=== PATIENT | female | born 1965 | race Caucasian/White ===

== ENCOUNTER 2017-05-16 08:59 | Inpatient (IN) ==
[2017-05-16] MEDS ORDERED: Gabapentin 300 MG CAPSULE PO ONE (09:23)
[2017-05-16] MEDS ORDERED: Acetaminophen IV 1,000 MG/100 ML INFUS..BTL IVPB ONE (09:23)
[2017-05-16] MEDS ORDERED: Famotidine 20 MG/2 ML VIAL IVP ONE (09:23)
[2017-05-16] MEDS ORDERED: Albuterol 2.5 MG/3 ML NEBULIZER IH ONE (09:34)
[2017-05-16] MEDS ORDERED: Lidocaine -MPF 1% 2 ML VIAL ID ONE (09:34)
[2017-05-16] MEDS ORDERED: CeFAZolin Syr 2,000MG/20 ML 2,000 MG/20 ML SYRINGE IVPB ONE (09:34)
[2017-05-16] MEDS ORDERED: Albuterol 2.5 MG/3 ML NEBULIZER ONE (09:39)
[2017-05-16] MEDS ORDERED: Lidocaine -MPF 1% 2 ML VIAL ONE (09:39)
--- NOTE | 2017-05-16 09:41 | Anesthesia Evaluation PreOp ---
Date of Encounter: 05/16/17 Time of Encounter: 09:40 - Past History Planned Operation: PLIF L5-S1 Cardiac History: Denies any Significant Hx Pulmonary History: Former smoker MONOTYPE SETTER History: Denies Any Significant HX Other Medical History: Other (Sjogren's Syndrome, SLE) Anesthesia History: Past Anesthesia (Severe N/V Foot Surgery, Robotic Lap Hysterectomy) : No Alcohol Use: rarely Drug use: none Medications and Allergies Cyclobenzaprine [Flexeril] 5 mg PO BID 07/26/15 [History] Gabapentin [Neurontin] 600 mg PO BID 01/02/17 [History] Meloxicam 15 mg PO DAILY 01/02/17 [History] Oxycodone HCl/Acetaminophen [Percocet 10-325 mg Tablet] 1 each PO Q6HR #28 tablet 01/02/17 [Rx] Rivaroxaban [Xarelto] 10 mg PO DAILY #21 tablet 01/02/17 [Rx] 3 Allergy/AdvReac Type Severity Reaction Status Date / Time sulfamethoxazole AdvReac Hives Verified 04/18/17 14:18 [From Bactrim] trimethoprim [From Bactrim] AdvReac Hives Verified 04/18/17 14:18 - Meds/Allergy Pre-op Review Medications Reviewed: Yes Allergies Reviewed: Yes Beta Blockers on Current Med List: No Anesthesia Results - Labs Laboratory Tests 04/18/17 04/18/17 15:57 15:57 Hgb 13.3 Hct 39.4 Plt Count 251 Sodium 141 Potassium 4.2 BUN 9 Creatinine 0.83 Anesthesia Exam O2 Sat Height 1.55 m Height 1.55 m Weight 87.543 kg Weight 87.543 kg O2 Sat by Pulse Oximetry 94 Vital Signs Temp Pulse Resp BP Pulse Ox 99.1 F 88 18 120/72 94 05/16/17 09:25 05/16/17 09:25 05/16/17 09:25 05/16/17 09:25 05/16/17 09:25 Height: 5'1 Weight: 193 lbs NPO (# of Hours): MN Pain Scale: 0 - HEENT Pupil (Motor): Pupils equal, EOMI Mallampati: II Teeth: Normal Oral Opening: Greater than 3 - MONOTYPE SETTER LOC: Oriented MONOTYPE SETTER Motor: Normal RUE, Normal LUE, Normal RLE, Normal LLE, Normal Face MONOTYPE SETTER Sensory: Deficit: RLE (paresthesia), LLE (paresthesia) - Cardiac Rhythm: Regular Murmur: None JVD: No Carotid Bruit: No - Pulmonary Breath Sounds: bilateral Clear Respiratory Effort: Symmetrical Anesthesia Assess/Plan ASA Score: 2 Modified Jordon Scale for Level of Consciousness: Cooperative, oriented, and tranquil Anesthetic Plan: General Monitoring Plan: Standard Monitors Recovery Plan: PACU (Discussed GA, agrees to proceed)
[2017-05-16] MEDS ORDERED: Ringers Solution, Lactated 1,000 ML IVC SCH ×2 (09:45→13:45)
[2017-05-16] MEDS ORDERED: Lidocaine -MPF 2% 2 ML VIAL ONE (10:14)
[2017-05-16] MEDS ORDERED: *HR* FentaNYL (PF) 100 MCG/2 ML VIAL ONE (10:14)
[2017-05-16] MEDS ORDERED: *HR* Propofol 200 MG/20 ML VIAL IVP ONE (10:14)
[2017-05-16] MEDS ORDERED: *HR* Midazolam HCl 5 MG/5 ML VIAL IVP ONE (10:14)
[2017-05-16] MEDS ORDERED: Ondansetron 4 MG/2 ML VIAL ONE (10:19)
[2017-05-16] MEDS ORDERED: Dexamethasone 4 MG/ML VIAL ONE (10:19)
[2017-05-16] MEDS ORDERED: *HR* Succinylcholine 200 MG/10 ML VIAL IVP ONE (10:19)
[2017-05-16] MEDS ORDERED: *HR* Midazolam HCl 2 MG/2 ML VIAL ONE (10:22)
[2017-05-16] MEDS ORDERED: *HR* Remifentanil 1 MG VIAL IVP ONE (10:22)
--- NOTE | 2017-05-16 10:24 | History & Physical Report ---
Date of Encounter: 05/16/17 Time of Encounter: 10:23 24 Hour HP Update - Instructions Instructions: If the History and Physical is less than 30 days old and was completed prior to A.M. admission and or procedure and has NOT been updated on calendar day of procedure please complete this update prior to performing procedure. - Update Patient reports changes in Medical Condition: No Changes in examination, assessment, or condition: No Changes in Medication: No Preop tests/diagnostics Reviewed: Yes Pre-Op MRSA Screen: Negative Surgery Remains Indicated: Yes Consent for Planned Operative Procedure(s) Verified: Yes - Pre-Operative Checklist Preoperative Checklist Indicated: No Prophylactic Antibiotic Ordered: Yes Home Medications Include Beta Tom: No Beta Tom Taken Today (Day of Surgery): No Beta Tom Taken Yesterday (Day Prior to Surgery): No Is VTE Prophylaxis Indicated?: Yes
[2017-05-16] MEDS ORDERED: *HR* HYDROmorphone 2 MG/ML SYRINGE ONE (10:39)
[2017-05-16] MEDS ORDERED: Scopolamine Patch 1.5 MG PATCH.TD72 TD ONE (10:39)
[2017-05-16] MEDS ORDERED: Ondansetron 4 MG/2 ML VIAL IVP ONE (13:35)
--- NOTE | 2017-05-16 14:03 | Orthopedic Operative Note ---
Date of procedure: 05/16/17 Pre-op diagnosis: Lumbar stenosis, lumbar radiculopathy, retrolisthesis Post-op diagnosis: same Operation/Findings: Posterior lumbar interbody fusion L5-S1: The patient successfully underwent general endotracheal anesthesia. The patient was given antibiotics prior to the start of the procedure. Compression boots and stockings were used for deep vein thrombosis prophylaxis. A Hood catheter was placed. Leads for neuro monitoring were placed on the upper and lower extremities. This included the cranium. The neuro monitoring personnel confirmed there were satisfactory readings prior to the start of the procedure. The patient was turned prone on the Alvino table. The back was prepped and draped in the usual sterile fashion. An incision was was marked and centered over the involved L5 and S1 levels in the mid line. The incision was deepened through the lumbar fascia. Bovie cautery and Redd elevators were used to reflect the paraspinal musculature at the lateral extent of the L5 transverse processes of the involved lumbosacral levels. Anna clamps were placed over the L5 spinous process. An intraoperative lateral fluoroscopy graft was obtained. A conversation was held between the surgeon and radiologist and both confirmed we had the correct operative levels. We then placed pedicle screws in standard fashion with the aid of fluoroscopy and anatomic landmarks. Briefly a starter awl was used. A gearshift was subsequently used to enter the belt dresser hole via a transpedicular route into the vertebral body. The belt dresser hole was tapped with an undersized instrument, and subsequently four 6.5 x 40 mm pedicle screws were placed bilaterally at the indicated L5 and S1 levels. The screws were tested with the aid of the neurologic monitoring staff via pedicle screw stimulation. All reading suggested there was no significant cortical wall breech. The screws were also evaluated fluoro- graphically and appeared to be in satisfactory position. We then turned our attention to the decompression portion of the procedure. We removed the supraspinous and interspinous ligaments and subsequently the insertion of the ligamentum flavum on the undersurface of the proximal L5 lamina was dislodged with a curette. We then removed the ligamentum flavum as well as undercut the L5-S1 facets at this level to decompress the lateral recesses. We also performed a L5 laminectomy. After the decompression, which was over and above that which was required to place the interbody graft, the foramen and traversing roots at this L5-S1 level were found to be free and patent. We also took part of the left medial facet in order to aid in the decompression. We then protected the neural elements including the thecal sac and traversing nerve root on the left with a dural retractor. We made an annulotomy into the L5-S1 disc space and then removed entire disc material using Pituitary instruments. We trialed various size grafts after the endplates were prepared for graft insertion. An 8 x 26 enter body graft fit well within the L5-S1disc space. We obtained some bone from the left posterior superior iliac spine through us a separate incision and combined with this with the bone which we had saved from the laminectomy portion of the procedure. This autograft bone was first placed in the anterior portion of the L5-S1 disc space and additional bone was placed within the interbody graft spacer. We then placed the interbody graft spacer obliquely across the disc space towards the midline while protecting the neural elements with a root retractor. When the graft was found to be in satisfactory position the tractor technician was removed. We then copiously irrigated the wound. We then decorticated the L5 transverse processes as well as the L5-S1 facet joints of the involved levels to aid in the posterolateral fusion. We placed autograft bone in the lateral gutters over these regions. We then placed rods within the screw heads of the involved levels and first locked the distal screws and then subsequently locked the proximal screws. We then closed the wound in layers with 1 Vicryl for the fascia, 2-0 Vicryl. Subcutaneous tissue, and Dermabond was used for skin closure. Sterile dressings were placed over the wound. The patient was turned supine on a hospital bed and extubated. All sponge instruments and needle counts were correct at the end of the procedure. The patient tolerated the procedure well without complications. Anesthesia: GETA Surgeon: Lennox Arreola Jr Estimated blood loss (cc): 125 Condition: stable Disposition: PACU
[2017-05-16] MEDS: *HR* Promethazine 25 MG/ML VIAL IVP PRN ×2 (14:25→14:30)
[2017-05-16] MEDS: *HR* HYDROmorphone (PF) 1 MG/ML SYRINGE IVP PRN ×2 (14:25→14:30)
--- NOTE | 2017-05-16 15:02 | Anesthesia Evaluation Post Op ---
Date of Encounter: 05/16/17 Time of Encounter: 15:01 - Vital Signs Vital Signs: Vital Signs/O2 Sat, Most Current Temp Pulse Resp BP Pulse Ox 98.8 F 107 19 123/75 98 05/16/17 14:45 05/16/17 14:45 05/16/17 14:45 05/16/17 14:45 05/16/17 14:45 - Lungs Lungs: Clear Ascult./Percussion - Airway Airway: Non-obstructed - Cardiovascular Regular Rate - Mental Status Mental Status: Alert & Oriented, Answers Appropriately - Pain Pain Scale: 7 (has chronic pain) Pain Scale used: JohnsonJuan J (Faces) - Nausea Vomiting Nausea Vomiting: Responds to treatment with IV Meds - Hydration Hydration: Ice chips, Hood catheter - Discharge PostOp Status: Transfer Patient to floor
[2017-05-16] MEDS ORDERED: Naloxone 0.4 MG/ML INJ IVP PRN (15:18)
[2017-05-16] MEDS ORDERED: *HR* OxyCODONE Immed Rel 5 MG TABLET PO SCH (16:00)
[2017-05-16] MEDS: Ringers Solution, Lactated 1,000 ML IVC SCH (16:36)
[2017-05-16] MEDS: CeFAZolin Premix DUPLEX 2,000 MG/50 ML BAG IVPB SCH (19:20)
[2017-05-16] MEDS: *HR* OxyCODONE Immed Rel 5 MG TABLET PO PRN (20:15)
[2017-05-16] MEDS: *HR* Morphine 2 MG/ML SYRINGE IVP PRN (23:24)
[2017-05-17] MEDS: *HR* OxyCODONE Immed Rel 5 MG TABLET PO PRN ×5 (00:21→20:21)
[2017-05-17] MEDS: CeFAZolin Premix DUPLEX 2,000 MG/50 ML BAG IVPB SCH (03:54)
[2017-05-17] MEDS: Ringers Solution, Lactated 1,000 ML IVC SCH (04:25)
[2017-05-17] MEDS: *HR* Morphine 2 MG/ML SYRINGE IVP PRN (05:29)
[2017-05-17] MEDS: Ondansetron 4 MG/2 ML VIAL IVP PRN ×2 (05:29→17:02)
[2017-05-17] MEDS: FLUoxetine 20 MG CAPSULE PO SCH ×2 (07:11)
[2017-05-17] MEDS: Acetaminophen 325 MG TABLET PO PRN ×2 (07:11→17:24)
[2017-05-17] MEDS: Folic Acid 1 MG TABLET PO SCH (07:12)
[2017-05-17] MEDS: diazePAM 10 MG TABLET PO PRN (12:11)
--- NOTE | 2017-05-17 13:28 | Spine Progress Note ---
Date of Encounter: 05/17/17 Time of Encounter: 13:27 Subjective Principal diagnosis: Status post lumbar fusion Interval history: The patient implanted back pain and left lower extremity radicular symptoms and numbness.. Afebrile vital signs are stable. Dressing is clean dry and intact. Neurovascularly intact with regard to bilateral lower extremities. Fires all upper and lower extremity motor groups. . Assessment :stable. Plan mobilize , continue analgesics, discharge planning. Have added Valium 10 mg by mouth 3 times a day when necessary as muscle relaxant. Objective Vital signs: Vital Signs Temp Pulse Resp BP Pulse Ox 05/17/17 11:35 99.7 F H 90 16 122/73 97 05/17/17 07:19 100.0 F H 95 15 105/68 94 05/17/17 04:38 99.0 F 83 18 143/92 94 05/16/17 23:17 99.3 F 93 17 121/77 95 05/16/17 19:30 98.7 F 88 16 111/71 93 05/16/17 17:41 99 F 99 16 119/79 99 05/16/17 16:58 98.2 F 93 13 120/76 95 05/16/17 15:50 98.2 F 106 14 112/77 95 05/16/17 15:26 95 05/16/17 15:05 99.1 F 102 20 126/83 93 05/16/17 14:55 108 16 133/82 96 05/16/17 14:45 98.8 F 107 19 123/75 98 05/16/17 14:35 112 14 122/69 100 05/16/17 14:25 118 20 132/90 93 05/16/17 14:15 98.2 F 120 20 158/94 93 Intake and Output 05/16/17 05/17/17 05/17/17 23:59 07:59 15:59 Intake Total 1570 / 1570 1450 / 1450 Output Total 1999 / 1999 1400 / 1400 Balance -430 / -430 50 / 50 Intake: IV Fluids 1170 / 1170 1050 / 1050 Lactated Ringers 1,000 ML @ 100 1000 / 1000 1000 / 1000 mls/hr IVC .Q10H [facility] Rx#: [id number] Ofirmev 1,000 mg/100 ml 1,000 100 / 100 mg In 100 ml @ 400 mls/hr IVPB ONCE ONE Rx#:[id number] Ancef Premix DUPLEX 2,000 mg In 50 / 50 50 / 50 50 ml @ 100 mls/hr IVPB Q8H [facility] Rx#:[id number] Ancef Syringe 2,000 MG/20 ML 2, 20 / 20 000 mg In 20 ml @ 200 mls/hr IVPB PREOP ONE Rx#:[id number] Oral 400 / 400 400 / 400 Output: Catheter 1999 1400 / 1400 Consult Discharge Plan - Plan Referrals: Elaina Bravo MD [Primary Care Provider] -
[2017-05-17 22:21] LABS: Bilirubin,Urine Negative (Negative); Blood,Urine Small (Negative); Clarity,Urine Cloudy (Clear); Color,Urine Yellow (Yellow); Glucose,Urine (UA) Normal (Normal); Ketones,Urine Negative (Negative); Leukocyte Esterase,Urine Large (Negative); Nitrite,Urine Negative (Negative); PH,Urine 6.5 pH Units (5.0-8.0); Protein,Urine Negative (Neg-Trace); Specific Gravity,Urine 1.005 (1.010-1.025); Urobilinogen,Urine Normal (Normal)
[2017-05-17 22:34] LABS: Squamous Epithelial Cell,Urine Moderate per lpf (None-Few); WBC,Urine 50-100 per hpf (0-3)
[2017-05-17 22:35] LABS: Bacteria,Urine Moderate per hpf (None-Few); Hyaline Casts,Urine None Seen per lpf (None-Few)
[2017-05-18] MEDS: *HR* OxyCODONE Immed Rel 5 MG TABLET PO PRN ×4 (06:03→20:20)
[2017-05-18] MEDS: Folic Acid 1 MG TABLET PO SCH (08:09)
[2017-05-18] MEDS: FLUoxetine 20 MG CAPSULE PO SCH ×2 (08:10→08:11)
--- NOTE | 2017-05-18 12:04 | Spine Progress Note ---
Date of Encounter: 05/18/17 Time of Encounter: 12:03 Subjective Principal diagnosis: Status post lumbar fusion Interval history: The patient complains mostly of back pain. Afebrile vital signs are stable. Incision is clean dry and intact. Neurovascularly intact with regard to bilateral lower extremities. Fires all upper and lower extremity motor groups. . Assessment :stable. Plan mobilize ,continue analgesics, discharge planning. Have added Valium 10 mg by mouth 3 times a day when necessary as muscle relaxant. Objective Vital signs: Vital Signs Temp Pulse Resp BP Pulse Ox 05/18/17 08:16 92 05/18/17 07:46 100.9 F H 94 16 117/79 92 05/18/17 03:35 99.8 F H 95 18 93/63 90 05/18/17 00:55 100.1 F H 64 17 97/66 94 05/17/17 22:04 99.5 F 98 19 93/54 93 05/17/17 18:50 102.3 F H 102 17 119/64 94 05/17/17 17:18 102.6 F H 108 16 132/84 92 Intake and Output 05/17/17 05/18/17 05/18/17 23:59 07:59 15:59 Intake Total 500 / 500 600 / 600 Balance 500 / 500 600 / 600 Intake: Oral 500 / 500 600 / 600 Other: # Voids 1 2 - Labs Labs: Abnormal lab results Urine Clarity Cloudy (Clear) A 05/17/17 22:10 Ur Specific [place] 1.005 (1.010-1.025) L 05/17/17 22:10 Urine Blood Small (Negative) H 05/17/17 22:10 Ur Leukocyte Esterase Large (Negative) H 05/17/17 22:10 Urine Microscopic RBC 3-5 per hpf (0-3) H 05/17/17 22:10 Urine Microscopic WBC 50-100 per hpf (0-3) H 05/17/17 22:10 Ur Squamous Epith Cells Moderate per lpf (None-Few) H 05/17/17 22:10 Urine Bacteria Moderate per hpf (None-Few) H 05/17/17 22:10 Ur Culture Indicated? YES (NO) A 05/17/17 22:10 Consult Discharge Plan - Plan Referrals: Latasha Oneil, PAC [Physician Sales Coordinator] - 05/29/17 1:15 pm Sessions,Main Escobedo DPM [Partnered Physician] - 05/30/17 10:15 am Lennox Arreola Jr, MD [Partnered Physician] - 08/16/17 11:45 am Elaina Bravo MD [Primary Care Provider] -
--- NOTE | 2017-05-18 12:13 | Discharge Summary ---
Date of Encounter: 05/18/17 Time of Encounter: 12:11 - Discharge Diagnosis (1) Lumbar stenosis without neurogenic claudication Priority: Primary Status: Chronic (2) Lumbar radiculopathy Priority: Secondary Status: Chronic (3) Retrolisthesis of vertebrae Priority: Secondary Status: Chronic - Discharge Medications Prescriptions: OxyCODONE Immed Rel [Roxicodone 5 MG] 10 mg PO Q6HR PRN #30 tablet PRN Reason: Mild To Moderate Pain diazePAM [Valium] 10 mg PO TID PRN #30 tablet PRN Reason: Spasms Home Medications: Cyclobenzaprine [Flexeril] 5 mg PO BID PRN 07/26/15 [History] Gabapentin [Neurontin] 600 mg PO BID 01/02/17 [History] Meloxicam 15 mg PO DAILY 01/02/17 [History] FLUoxetine HCl [Fluoxetine HCl] 40 mg PO DAILY 05/16/17 [History] FLUoxetine HCl [Prozac] 20 mg PO DAILY 05/16/17 [History] Folic Acid 1 mg PO DAILY 05/16/17 [History] Gabapentin [Neurontin] 1,200 mg PO HS 05/16/17 [History] Hydroxychloroquine [Plaquenuil] 200 mg PO BID 05/16/17 [History] Methotrexate [Otrexup] 10 mg PO MO 05/16/17 [History] OxyCODONE Immed Rel [Roxicodone 5 MG] 10 mg PO Q6HR PRN #30 tablet 05/18/17 [Rx] diazePAM [Valium] 10 mg PO TID PRN #30 tablet 05/18/17 [Rx] Allergies/Adverse Reactions: 3 Allergy/AdvReac Type Severity Reaction Status Date / Time sulfamethoxazole AdvReac Hives Verified 05/16/17 09:58 [From Bactrim] trimethoprim [From Bactrim] AdvReac Hives Verified 05/16/17 09:58 Labs on day of discharge: Labs from last 24 hours 05/17/17 22:10 Urine Color Yellow Urine Clarity Cloudy A Urine pH 6.5 Ur Specific [place] 1.005 L Urine Protein Negative Urine Glucose (UA) Normal Urine Ketones Negative Urine Blood Small H Urine Nitrite Negative Urine Bilirubin Negative Urine Urobilinogen Normal Ur Leukocyte Esterase Large H Urine Microscopic RBC 3-5 H Urine Microscopic WBC 50-100 H Ur Squamous Epith Cells Moderate H Urine Bacteria Moderate H Hyaline Casts None Seen Ur Culture Indicated? YES A - Impressions ITS Impressions Lumbar Spine X-Ray 05/16/17 11:37 IMPRESSION: Postsurgical changes of posterior fusion from L5-S1 without evidence of hardware complication on single view. D/ / Osmel Nixon MD / Osmel Nixon MD Interpreting Provider: Osmel Nixon MD Lumbar Spine X-Ray 05/18/17 14:03 IMPRESSION: Mild dextroscoliosis. Lumbar spine fusion at L4-5. No unexpected finding. D/ / 05/18/2017 11:59:00 Felicia Hawkins MD / domingo Interpreting Provider: Felicia Hawkins MD Date of admission: 05/16/17 15:22 Primary care physician: Elaina Eduardo Consults: 05/16/17 15:18 Consult to Occupational Therapy [CONS] Routine Comment: Evaluate, develop and implement POC Reason for Consult: Postoperative rehabilitation Consult to Physical Therapy [CONS] Routine Comment: Evaluate, develop and implement POC Reason for Consult: post Operative rehabilitation Consult to Spine Navigator [CONS] [CONS] Routine - Patient Status Disposition: Home Health Service Condition: Good Functional capacity at discharge: uses cane/walker Overall status at discharge: patient is progressing back to baseline - Discharge Instructions Follow Up With: Latasha Oneil PAC [Physician Typesetter Perforator Operator] - 05/29/17 1:15 pm Sessions,Main Escobedo DPM [Partnered Physician] - 05/30/17 10:15 am Lennox Arreola Jr, MD [Partnered Physician] - 08/16/17 11:45 am Elaina Bravo MD [Primary Care Provider] - - Diet and Activity Activity: as per physical therapy Diet: advance to your usual diet - Hospital Course Hospital course: Ms. Gan is a 52 year old female The patient had an uneventful postoperative course. Progressed from intravenous analgesic needs to oral analgesic needs only. Remained neurovascularly intact and mobilized satisfactorily. All intraoperative and/or postoperative radiographic studies were satisfactory. Patient is discharged with plan for rehabilitation and follow-up in 2 weeks post discharge on analgesic medication and patient's home medications. - Time Spent with Patient Total time spent providing and/or coordinating discharge services: - VTE Documentation of Mechanical Device: Graduated compression elastic hosiery
[2017-05-18] MEDS: Acetaminophen 325 MG TABLET PO PRN (15:53)
[2017-05-18] MEDS: *HR* Morphine 2 MG/ML SYRINGE IVP PRN (17:27)
[2017-05-18 18:24] LABS: Hematocrit 30.1 % (35.3-44.9); Hemoglobin 9.8 g/dL (11.5-15.4); Immature Granulocytes % 0.4 % (0-4); Lymphocytes # 0.9 K/mcL (0.6-4.6); Lymphocytes % 10.9 %; Mean Corpuscular HGB Conc 32.6 g/dL (31.6-35.5); Mean Corpuscular Hemoglobin 30.9 pg (28.0-33.3); Mean Platelet Volume 8.6 fL (9.4-12.4); Monocytes # 0.9 K/mcL (0.0-1.3); Monocytes % 11.1 %; Neutrophils # 6.1 K/mcL (1.6-8.9); Platelet Count 154 K/mcL (140-400); Red Blood Count 3.17 M/mcL (3.82-4.97); Segmented Neutrophils % 77.6 %
[2017-05-18 18:35] LABS: BUN/Creatinine Ratio 9 (6-26); Blood Urea Nitrogen 7 mg/dL (7-20); Calcium 8.5 mg/dL (8.6-10.8); Carbon Dioxide 24 mEq/L (19-29); Chloride 101 mEq/L (98-109); Glucose 117 mg/dL (70-99); Osmolality,Calculated 281 (280-300); Potassium 3.1 mEq/L (3.5-4.5); Sodium 136 mEq/L (136-145); eGFR For African Americans > 60 (> 60); eGFR For Non-African Americans > 60 (> 60)
[2017-05-19] MEDS: *HR* OxyCODONE Immed Rel 5 MG TABLET PO PRN ×2 (07:30→17:33)
[2017-05-19] MEDS: FLUoxetine 20 MG CAPSULE PO SCH ×2 (07:52)
[2017-05-19] MEDS: Folic Acid 1 MG TABLET PO SCH (07:53)
[2017-05-19] MEDS ORDERED: Ondansetron ODT 4 MG TAB.RAPDIS SL PRN (09:29)
[2017-05-19] MEDS: diazePAM 10 MG TABLET PO PRN (11:13)
[2017-05-19] MEDS: Acetaminophen 325 MG TABLET PO PRN (12:43)
[2017-05-20] MEDS: *HR* OxyCODONE Immed Rel 5 MG TABLET PO PRN ×2 (02:06→09:00)
[2017-05-20 07:17] VITALS: BP 114/55
[2017-05-20] MEDS: FLUoxetine 20 MG CAPSULE PO SCH ×2 (09:01)
[2017-05-20] MEDS: Folic Acid 1 MG TABLET PO SCH (09:01)
--- NOTE | 2017-05-20 09:06 | Orthopedics Progress Note ---
Date of Encounter: 05/20/17 Time of Encounter: 09:05 Subjective Principal diagnosis: Status post lumbar fusion Interval history: S: Doing well this AM Pain in good control O: Afeb, VSS Dressing is clean, dry, and intact Motors bilateral lower extremities A: Post L4 PLIF P: Continue postoperative protocol per Dr. Arreola D/C today Objective Vital signs: Vital Signs Temp Pulse Resp BP Pulse Ox 05/20/17 07:10 99.5 F 76 15 114/55 93 05/20/17 05:14 85 109/74 05/20/17 02:05 86 15 114/75 05/19/17 19:39 98.6 F 93 15 101/59 98 05/19/17 17:30 99.7 F H 95 15 104/63 05/19/17 12:37 97.9 F 90 16 100/68 96 Intake and Output 05/19/17 05/20/17 05/20/17 23:59 07:59 15:59 Intake Total 50 / 50 50 / 50 Balance 50 / 50 50 / 50 Intake: Oral 50 / 50 50 / 50 Other: # Voids 2 - Labs CBC & BMP: 05/18/17 18:15 05/18/17 18:15 Labs: Abnormal lab results RBC 3.17 M/mcL (3.82-4.97) L 05/18/17 18:15 Hgb 9.8 g/dL (11.5-15.4) L 05/18/17 18:15 Hct 30.1 % (35.3-44.9) L 05/18/17 18:15 MPV 8.6 fL (9.4-12.4) L 05/18/17 18:15 Potassium 3.1 mEq/L (3.5-4.5) L 05/18/17 18:15 Glucose 117 mg/dL (70-99) H 05/18/17 18:15 Calcium 8.5 mg/dL (8.6-10.8) L 05/18/17 18:15 Urine Clarity Cloudy (Clear) A 05/17/17 22:10 Ur Specific [place] 1.005 (1.010-1.025) L 05/17/17 22:10 Urine Blood Small (Negative) H 05/17/17 22:10 Ur Leukocyte Esterase Large (Negative) H 05/17/17 22:10 Urine Microscopic RBC 3-5 per hpf (0-3) H 05/17/17 22:10 Urine Microscopic WBC 50-100 per hpf (0-3) H 05/17/17 22:10 Ur Squamous Epith Cells Moderate per lpf (None-Few) H 05/17/17 22:10 Urine Bacteria Moderate per hpf (None-Few) H 05/17/17 22:10 Ur Culture Indicated? YES (NO) A 05/17/17 22:10 - VTE Documentation of Mechanical Device: Intermittent pneumatic compression device Consult Discharge Plan - Plan Referrals: Latasha Oneil PAC [Physician Customer Pricing Manager] - 05/29/17 1:15 pm Sessions,Main Escobedo DPM [Partnered Physician] - 05/30/17 10:15 am Lennox Arreola Jr, MD [Partnered Physician] - 08/16/17 11:45 am Elaina Bravo MD [Primary Care Provider] - Prescriptions: diazePAM [Valium] 10 mg PO TID PRN #30 tablet PRN Reason: Spasms OxyCODONE Immed Rel [Roxicodone 5 MG] 10 mg PO Q6HR PRN #30 tablet PRN Reason: Mild To Moderate Pain
[2017-05-21] MEDS ORDERED: *HR* Methotrexate 2.5 MG TABLET PO SCH (14:06)
== END 2017-05-20 11:10 | disposition home health service (06) | DRG 304 ==
LOC: SAMDAY 08:59 → 3NENU 15:22
PROVIDERS: ADMIT Orthopaedic Surgery Orthopaedic Surgery of the Spine; ATTEND Orthopaedic Surgery Orthopaedic Surgery of the Spine